=== PATIENT | male | born 1985 | race African-American/Black ===

== ENCOUNTER 2019-08-14 18:55 | Emergency (ER) | payer OTHER ==
[~2019-08-14] VITALS: Ht 177.8 cm; Wt 95.4 kg
[2019-08-14 19:17] VITALS: BP 139/89
--- NOTE | 2019-08-14 19:51 | RAD ---
Exam is an: 3 views of the right foot HISTORY: History of twisting injury, pain COMPARISON: None available FINDINGS: The alignment of the tarsal joints, tarsometatarsal joints, tarsophalangeal joints, interphalangeal grossly appears unremarkable. There is no acute fracture or dislocation identified IMPRESSION: No acute osseous findings Electronically signed by: Cresencio Watson MD (08/14/2019 7:48 PM) [id number]
--- NOTE | 2019-08-14 20:15 | PHYS DOC ---
Past History Past Medical History: No Pertinent History Past Surgical History: No Surgical History Alcohol Use: None General Adult EDM: Chief Complaint: Foot pain HPI: HPI: 34-year-old male presents with right foot pain. The patient was coming down the stairs this morning when he stepped on an object that was underneath the carpet. He had pain in the middle of his foot. Patient was apprised that the pain has lasted all day and is now worse than it was this morning. Patient was to make sure is not broken. He denies any other injuries or complaints. Review of Systems: Review of Systems: Constitutional: Denies fever or chills Eyes: Denies change in visual acuity HENT: Denies nasal congestion or sore throat Respiratory: Denies cough or shortness of breath Cardiovascular: Denies chest pain or edema GI: Denies abdominal pain, nausea, vomiting, bloody stools or diarrhea : Denies dysuria Musculoskeletal: Right foot pain Integument: Denies rash Neurologic: Denies headache, focal weakness or sensory changes Endocrine: Denies polyuria or polydipsia Lymphatic: Denies swollen glands Psychiatric: Denies depression or anxiety Heart Score: Risk Factors: Risk Factors: DM, Current or recent (<one month) smoker, HTN, HLP, family history of CAD, obesity. Risk Scores: Score 0 - 3: 2.5% MACE over next 6 weeks - Discharge Home Score 4 - 6: 20.3% MACE over next 6 weeks - Admit for Clinical Observation Score 7 - 10: 72.7% MACE over next 6 weeks - Early Invasive Strategies Allergies: Allergies: Allergies Coded Allergies Type Severity Reaction Last Updated Verified No Known Drug Allergies 08/14/19 No Physical Exam: PE: Constitutional: Well developed, well nourished, no acute distress, non-toxic appearance. [] HENT: Normocephalic, atraumatic, bilateral external ears normal, oropharynx moist, no oral exudates, nose normal. [] Eyes: PERRLA, EOMI, conjunctiva normal, no discharge. [] Neck: Normal range of motion, no tenderness, supple, no stridor. [] Cardiovascular:Heart rate regular rhythm, no murmur [] Lungs & Thorax: Bilateral breath sounds clear to auscultation [] Abdomen: Bowel sounds normal, soft, no tenderness, no masses, no pulsatile masses. [] Skin: Warm, dry, no erythema, no rash. [] Back: No tenderness, no CVA tenderness. [] Extremities: Tenderness over the right midfoot, no ecchymosis or obvious deformi ty. [] Neurologic: Alert and oriented X 3, normal motor function, normal sensory function, no focal deficits noted. [] Psychologic: Affect normal, judgement normal, mood normal. [] Current Patient Data: Vital Signs: Vital Signs Date Time Temp Pulse Resp B/P (MAP) Pulse Ox O2 Delivery O2 Flow Rate FiO2 08/14/19 19:17 98.5 70 18 139/89 (106) 98 Room Air EKG: EKG: [] Radiology/Procedures: Radiology/Procedures: [] Impressions: Exam is an: 3 views of the right foot HISTORY: History of twisting injury, pain COMPARISON: None available FINDINGS: The alignment of the tarsal joints, tarsometatarsal joints, tarsophalangeal joints, interphalangeal grossly appears unremarkable. There is no acute fracture or dislocation identified IMPRESSION: No acute osseous findings Electronically signed by: Cresencio Watson MD (08/14/2019 7:48 PM) [id number] DICTATED AND SIGNED BY: CRESENCIO WATSON MD DATE: 08/14/19 194 CC: DRU VOGT DO; PCPMARAL ~ Course & Med Decision Making: Course & Med Decision Making Pertinent Labs and Imaging studies reviewed. (See chart for details) Foot x-rays are negative for fracture. The patient has a midfoot sprain. I have advised supportive care. He is stable for discharge at this time. [] Dragon Disclaimer: Tejal Disclaimer: This electronic medical record was generated, in whole or in part, using a voice recognition dictation system. Departure Departure: Impression: Primary Impression: Right foot sprain Qualified Codes: S93.601A - Unspecified sprain of right foot, initial encounter Disposition: HOME/RESIDENCE PRIOR TO ADM Condition: STABLE Referrals: PCPMARAL (PCP) DRU VOGT DO August 14, 2019 20:15
== END 2019-08-14 20:30 | disposition home or self-care (01) ==
LOC: ER 18:55
DX: S93.601A Unspecified sprain of right foot, initial encounter (principal); W22.8XXA Striking against or struck by other objects, initial encounter; Y93.89 Activity, other specified; Y92.89 Other specified places as the place of occurrence of the external cause; Y99.8 Other external cause status
CPT/HCPCS: 73630; 99283